=== PATIENT | male | born 1990 | race Caucasian/White ===

== ENCOUNTER 2017-01-02 14:29 | Emergency (ER) | payer MEDICAID ==
[2017-01-02 14:41] VITALS: BP 122/66
--- NOTE | 2017-01-02 14:52 | EDM.PDOC ---
ED HPI GENERAL MEDICAL PROBLEM - General Chief Complaint: General Stated Complaint: Tooth/Jaw Pain Time Seen by Provider: 01/02/17 14:30 Source of Information: Reports: Patient, Family (Sister). Denies: Old Records ( No [facility] records available) History Limitations: Reports: No Limitations - History of Present Illness INITIAL COMMENTS - FREE TEXT/NARRATIVE: The patient was brought to the emergency room via private automobile by his sister for evaluation of exacerbation of his 6 month long history of chronic intermittent right lower dental pain with symptoms worsened since about 1 AM this morning. He did try some ibuprofen at that time with no other recent antipyretic medications or treatment. He denies any recent or previous dental injury. The patient has not been evaluated by a dentist to this point and does use tobacco products as below. He has also had a two-week history of a somewhat yellowish productive cough, however denies dyspnea, wheezing, known exposure to infection, etc. No recent history of abdominal pain, heartburn, nausea, diarrhea , melena, gross hematochezia, or any food intolerance, including fatty foods, etc.. The patient also denies any recent fever, cough, wheezing, dyspnea, etc.. Onset: Gradual Duration: Other (As above) Location: Reports: Other (As above) Quality: Reports: Ache, Throbbing Severity: Moderate Improves with: Reports: None Worsens with: Reports: None Context: Reports: Other (As above) Associated Symptoms: Reports: Cough, cough w sputum. 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 Denies: Allergic Rhinitis, Impaired Vision Cardiovascular History: Reports: None. Denies: Arrhythmia, CAD, Heart Murmur, High Cholesterol, Hypertension Respiratory History: Reports: None. Denies: Asthma, COPD Gastrointestinal History: Reports: None. Denies: Celiac Disease, Cholelithiasis , GERD, GI Bleed, Hiatal Hernia, Inflammatory Bowel Disease, Irritable Bowel Syndrome, PUD Genitourinary History: Reports: None Musculoskeletal History: Reports: Osteoarthritis. Denies: Arthritis, Back Pain , Chronic, Fracture, Gout, RA, SLE Hematologic History: Denies: Anemia, Blood Transfusion(s) - Past Surgical History HEENT Surgical History: Reports: Myringotomy w Tube(s), Oral Surgery, Other ( See Below). Denies: Adenoidectomy, Tonsillectomy Other HEENT Surgeries/Procedures: Bilateral PE tubes at age 1, [place] teeth extraction 4 at age 16 GI Surgical History: Reports: None. Denies: Colonoscopy, EGD, Hernia, Inguinal Musculoskeletal Surgical History: Reports: Shoulder Surgery, Other (See Below) Other Musculoskeletal Surgeries/Procedures:: Arthroscopic right shoulder spur excisions at age 19 Social & Family History - Tobacco Use Smoking Status *Q: Current Every Day Smoker Tobacco Use Within Last Twelve Months: Cigarettes Years of Tobacco use: 14 Packs/Tins Daily: 0.5 (Started using chewing tobacco and cigarettes at age 12 with average cigarette use of one half to one pack per day with patient not using chewing tobacco during the last couple of months) Used Tobacco, but Quit: No Smoking Cessation Information Provided To Patient: Yes - Alcohol Use Alcohol Use History: Yes Days Per Week of Alcohol Use: 1 (DWI at age 25 with no history of alcohol abuse or treatment) Number of Drinks Per Day: 4 (Usually beer) Total Drinks Per Week: 4 Alcohol Use in Last Twelve Months: Yes Alcohol Use Frequency: Socially - Recreational Drug Use Recreational Drug Use: No Drug Use in Last 12 Months: No Recreational Drug Type: Denies: Amphetamines (Speed), Cocaine, Heroin, Inhalants (Glues, Solvents, Aerosols), LSD (Acid), Marijuana/Hashish, Methamphetamine, Morphine - Living Situation & Occupation Living situation: Reports: 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 ED EXAM, GENERAL - Physical Exam Exam: See Below Exam Limited By: No Limitations General Appearance: Alert, WD/WN, No Apparent Distress Eye Exam: Bilateral Eye: EOMI, Normal Inspection (No nystagmus), PERRL Ears: Normal External Exam, Normal Canal (Moderate cerumen in the EACs bilaterally right greater than left), Hearing Grossly Normal, Normal TMs Nose: Normal Inspection, Normal Mucosa, No Blood Throat/Mouth: Normal Lips, Normal Gums, Normal Oropharynx, Normal Voice, No Airway Compromise. No: Normal Teeth (Moderate periodontal disease with no significant localized tenderness or swelling in the right lower gingiva region, no jaw swelling, no drainage or evidence of significant abscess), Dysphagia, Perioral Cyanosis Head: Atraumatic, Normocephalic. No: Facial Swelling, Facial Tenderness, Sinus Tenderness Neck: Normal Inspection, Supple, Non-Tender, Full Range of Motion. No: Lymphadenopathy (L), Lymphadenopathy (R), Thyromegaly Respiratory/Chest: No Respiratory Distress, No Accessory Muscle Use, Chest Non- Tender, Rales (Very occasional bilateral), Rhonchi (Moderate diffuse bilateral) , Wheezing (Diffuse bilateral). No: Pleural Rub, Retractions Cardiovascular: Normal Peripheral Pulses, Regular Rate, Rhythm, No Edema, No Gallop, No JVD, No Murmur, No Rub. No: Gallop/S3, Friction Rub Peripheral Pulses: 2+: Radial (L), Radial (R) GI/Abdominal: Normal Bowel Sounds, Soft, Non-Tender, No Organomegaly, No Distention, No Abnormal Bruit, No Mass. No: Guarding (Male) Exam: Deferred Rectal (Males) Exam: Deferred Back Exam: Normal Inspection, Full Range of Motion. No: CVA Tenderness (L), CVA Tenderness (R), Muscle Spasm Extremities: Normal Inspection, Normal Range of Motion, Non-Tender, No Pedal Edema, Normal Capillary Refill. No: Azalea's Sign Neurological: Alert, Oriented, CN II-XII Intact, Normal Cognition, Normal Gait, No Motor/Sensory Deficits Psychiatric: Normal Affect, Normal Mood Skin Exam: Warm, Dry, Intact, Normal Color, No Rash. No: Diaphoretic, Lymphangitis, Wound/Incision Lymphatic: No Adenopathy Course - Vital Signs Last Recorded V/S: Last Vital Signs Temp 37.3 C 01/02/17 14:30 Pulse 76 01/02/17 14:30 Resp 16 01/02/17 14:30 BP 122/66 01/02/17 14:30 Pulse Ox 98 01/02/17 14:30 Vital Signs - 24 hr 01/02/17 14:30 Temperature [ 37.3 C Temporal] Pulse, 76 Peripheral [ Pulse Oximetry] Respiratory 16 Rate Blood Pressure 122/66 [Left Upper Arm ] O2 Sat by Pulse 98 Oximetry - Orders/Labs/Meds Labs: None Meds: None - Radiology Interpretation Free Text/Narrative:: None Departure - Departure Time of Disposition: 15:15 Disposition: Home, Self-Care 01 Condition: Good Clinical Impression: Dental abscess, Bronchitis, Tobacco abuse counseling Reactive airway disease Qualifiers: Asthma severity: moderate persistent Asthma complication type: with acute exacerbation Qualified Code(s): J45.41 - Moderate persistent asthma with (acute ) exacerbation - Discharge Information Prescriptions: Amoxicillin/Potassium Clav [Augmentin 875-125 Tablet] 1 each PO BIDMEALS #20 tablet guaiFENesin/Dextromethorphan [Mucinex Dm ER 1,200-60 mg Tab] 1 each PO BID #20 tab.er.12h Instructions: Dextromethorphan; Guaifenesin tablets, Amoxicillin; Clavulanic Acid tablets, Dental Abscess, [id number], Chronic Obstructive Pulmonary Disease, [id number], Acute Bronchitis, [id number] Referrals: PCP,None [Primary Care Provider] - Forms: ED Department Discharge, ED Return to Work/School Form Additional Instructions: 1. Followup with your regular provider in 10-14 days as directed. 2. Follow-up with a dentist MELISSA as discussed for dental x-rays and possible dental procedure 3. Tylenol 650 mg by mouth every 4 hours and/or OTC ibuprofen 2-3 tabs by mouth every 6 hours with food as directed./needed. 4. Listerine gargles four times per day, after meals and at bedtime, with additional Chloroseptic lozenges or spray as needed for 10 days and/or until symptoms resolve. 5. Recommend lung function test, i.e., PFTs, once your current infection has resolved 6. Stop all tobacco use MELISSA as directed/per provided information and consider contacting [employer] [facility], etc.. 7. Work excuse- See Form - Problem List & Annotations (1) Dental abscess SNOMED Code(s): 120108440 Code(s): K04.7 - PERIAPICAL ABSCESS WITHOUT SINUS Status: Acute Priority : High Current Visit: Yes Onset Date: ~01/02/17 Annotation/Comment:: Long history of right lower dental pain with possible beginning dental abscess and current moderate to severe periodontal disease. Patient was advised to follow- up with a dentist [facility] for dental x-rays and possible further therapy. Various therapeutic options were discussed, including IM Toradol and IM Rocephin therapy , which the patient did not wish to have at this time. Symptomatic relief as per discharge instructions, including additional Listerine gargles. Initiate Augmentin therapy, which will also be beneficial for his bronchitis as below (2) Bronchitis SNOMED Code(s): 95230812 Code(s): J40 - BRONCHITIS, NOT SPECIFIED ACUTE OR CHRONIC Status: Acute Priority: High Current Visit: Yes Onset Date: ~01/02/17 Annotation/ Comment:: Significant bronchitis with borderline beginning pneumonia by clinical exam. Patient did not wish to have any further extensive workup, including blood work, chest x-rays, etc. He is afebrile at this time. Initiate Augmentin and Mucinex DM therapy as above. The patient did not wish to have IM Rocephin as above. Close follow-up by his regular provider as per discharge instructions (3) Reactive airway disease SNOMED Code(s): 824697940104 Code(s): J45.909 - UNSPECIFIED ASTHMA, UNCOMPLICATED Status: Acute Priority: High Current Visit: Yes Onset Date: 01/02/17 Annotation/Comment: : Reactive airway disease secondary to his current bronchitis versus possible beginning COPD secondary to his tobacco use. Patient denies any previous history of asthma or COPD. He did not wish to have an IM Depo-Medrol injection or inhaler therapy. Close follow-up by his regular provider, including recommended PFTs after current infection has resolved Qualifiers: Asthma severity: moderate persistent Asthma complication type: with acute exacerbation Qualified Code(s): J45.41 - Moderate persistent asthma with ( acute) exacerbation (4) Tobacco abuse counseling SNOMED Code(s): 961116647, 444352138, 558852922 Code(s): Z71.6 - TOBACCO ABUSE COUNSELING Status: Chronic Priority: Medium Current Visit: Yes Annotation/Comment:: Patient was strongly advised to discontinue all tobacco use MELISSA especially in light of his dental disease and pulmonary disease as above. He was counseled on the use of Nicorette gum. Tobacco cessation information provided at discharge - Problem List Review Problem List Initiated/Reviewed/Updated: Yes - Assessment/Plan Assessment:: As above Plan: As above. Extensive precautions were given to the patient and his sister, who are in agreement with the treatment plan. See Patient Instructions for further treatment and plan.
== END 2017-01-02 15:15 | disposition home or self-care (01) ==
LOC: LL.ED 14:29
DX: K04.7 Periapical abscess without sinus (principal); J40 Bronchitis, not specified as acute or chronic; J45.41 Moderate persistent asthma with (acute) exacerbation; F17.210 Nicotine dependence, cigarettes, uncomplicated; M19.90 Unspecified osteoarthritis, unspecified site; Z71.6 Tobacco abuse counseling; Z98.890 Other specified postprocedural states
CPT/HCPCS: 99283

== ENCOUNTER 2017-09-12 18:26 | Emergency (ER) | payer BC ==
[2017-09-12 18:30] VITALS: BP 125/63
[2017-09-12] MEDS ORDERED: Lactated Ringers 1,000 ML IV ONE (18:46)
[2017-09-12] MEDS ORDERED: Famotidine 20 MG/2 ML SDV IVPUSH ONE (18:46)
[2017-09-12] MEDS ORDERED: Ondansetron 4 MG/2 ML SDV IVPUSH ONE (18:46)
--- NOTE | 2017-09-12 18:46 | EDM.PDOC ---
ED HPI GENERAL MEDICAL PROBLEM - General Chief Complaint: General Stated Complaint: n/v lost hearing to right ear Time Seen by Provider: 09/12/17 18:40 Source of Information: Reports: Patient, Old Records ([facility] chart/EMR) History Limitations: Reports: No Limitations - History of Present Illness INITIAL COMMENTS - FREE TEXT/NARRATIVE: Patient drove himself to the emergency room via private automobile for evaluation of refractory nausea and emesis associated with some heartburn with symptoms starting at about 14:00 hours yesterday. He did miss work yesterday. He denies any known exposure to infection, food poisoning, etc. He had 6 episodes of emesis yesterday with 2 episodes of emesis today and persistent nausea. He also had one loose bowel movement earlier today with no other significant diarrhea. He has not taken any medications for his symptoms to this point. Note that he did not get an influenza booster this season. He denies any gross hematuria, colic, or other UTI symptoms. The patient also denies any recent fever, wheezing, dyspnea, etc. with stable chronic cough secondary to his tobacco abuse. He also complains of 6/10 sharp right-sided otalgia with patient hearing a pop with onset of his symptoms at 16:00 hours this afternoon. No recent history of other abdominal pain, melena, gross hematochezia, or any food intolerance, including fatty foods, etc. with patient having a known history of occasional heartburn with no current treatment as below. Onset: Today, Gradual Onset Date: 09/11/17 Onset Time: 14:00 Duration: Constant, Getting Worse Location: Reports: Abdomen, Other (Right-sided otalgia). Denies: Head, Face, Neck, Chest, Back, Pelvis, Upper Extremity, Left, Upper Extremity, Right, Radiates to Quality: Reports: Same as Previous Episode, Sharp Severity: Moderate Improves with: Reports: None Worsens with: Reports: None Context: Reports: Other (As above) Associated Symptoms: Reports: Cough (Stable chronic), Other (Otalgia as above). Denies: Confusion, Chest Pain, cough w sputum, Diaphoresis, Fever/Chills, Headaches, Loss of Appetite, Malaise, Nausea/Vomiting, Rash, Seizure, Shortness of Breath, Syncope, Weakness Treatments MANAGER IN HOME: Reports: Other (see below) (None) Right Ear Pain Score (Numeric/FACES): 6 - Related Data Allergies Allergy/AdvReac Type Severity Reaction Status Date / Time No Known Allergies Allergy Verified 01/02/17 14:34 Home Meds: Home Meds Amoxicillin/Potassium Clav [Augmentin 875-125 Tablet] 1 each PO BIDMEALS #20 tablet 09/12/17 [Rx] Omeprazole Magnesium [Prilosec Otc] 20 mg PO BIDAC #30 tablet. 09/12/17 [Rx] Past Medical History HEENT History: Reports: Otitis Media. Denies: Allergic Rhinitis, Glaucoma, Hard of Hearing, Impaired Vision, Macular Degeneration, Retinal Detachment Cardiovascular History: Reports: None, Other (See Below). Denies: Aneurysm, Arrhythmia, Blood Clots/VTE/DVT, CAD, Heart Murmur, High Cholesterol, Hypertension, Syncope Other Cardiovascular History: Patient does not know his cholesterol status Respiratory History: Reports: Other (See Below). Denies: Asthma, COPD, Intubation, Previous, PE, Pneumothorax Other Respiratory History: Reactive airway disease with bronchitis with no current medical therapy Gastrointestinal History: Reports: GERD. Denies: Bowel Obstruction, Celiac Disease, Cholelithiasis, Chronic Constipation, Chronic Diarrhea, Gastritis, GI Bleed, Hepatitis, Hiatal Hernia, Inflammatory Bowel Disease, Irritable Bowel Syndrome, Jaundice, Pancreatitis, PUD Genitourinary History: Reports: None. Denies: Acute Renal Failure, Chronic Renal Insuffiency, Renal Calculus, STD, Urinary Incontinence, UTI, Recurrent Musculoskeletal History: Reports: Back Pain, Chronic, Osteoarthritis. Denies: Arthritis, Fracture, Gout, Neck Pain, Chronic, RA, SLE Neurological History: Reports: Concussion, Head Trauma, Neuropathy, Peripheral, Other (See Below). Denies: Cerebral Aneurysms, CVA, Headaches, Chronic, Migraines, MS, Parkinson's, Seizure, TIA, Vertigo Other Neuro History: Possible beginning carpal tunnel syndrome. Borderline head concussion at 8 years of age. Psychiatric History: Reports: Anxiety, Depression. Denies: Abuse, Victim of, ADD, ADHD, Addiction, Psych Hospitalization(s), PTSD, Suicide Attempt, Suicidal Ideation Endocrine/Metabolic History: Denies: Diabetes, Type I, Diabetes, Type II, Diabetes Mellitus, Type 3c, Hypothyroidism, IDDM Hematologic History: Reports: None. Denies: Anemia, Blood Transfusion(s), Iron Deficiency Immunologic History: Reports: None. Denies: AIDS, HIV, SLE Oncologic (Cancer) History: Reports: None. Denies: Basal Cell Carcinoma, Hodgkin's Lymphoma, Leukemia, Lymphoma, Malignant Melanoma, Non-Hodgkin's Lymphoma, Squamous Cell Carcinoma Dermatologic History: Denies: None, Eczema, Psoriasis - Infectious Disease History Infectious Disease History: Reports: Chicken Pox, Mononucleosis (6 years of age) . Denies: C-Difficile, Measles, Meningitis, MRSA, Mumps, Pertussis (Whooping Cough), Rheumatic Fever, Rubella, Scarlet Fever, Shingles, TB, VRE - Past Surgical History Head Surgeries/Procedures: Reports: None HEENT Surgical History: Reports: Myringotomy w Tube(s), Oral Surgery, Other ( See Below). Denies: Adenoidectomy, Cataract Surgery, Detached Retina, Eye Surgery, Laser Surgery, LASIK, Naso-Sinus Surgery, Tonsillectomy Other HEENT Surgeries/Procedures: Bilateral PE tubes at age 1, [place] teeth extraction 4 at age 16. Right lower premolar tooth extraction in December 2016. Cardiovascular Surgical History: Reports: None. Denies: Varicose Respiratory Surgical History: Reports: None. Denies: Thoracentesis GI Surgical History: Reports: None. Denies: Appendectomy, Cholecystectomy, Colonoscopy, EGD, Hernia, Abdominal, Hernia, Inguinal, Hernia Repair/Other Male Surgical History: Reports: Circumcision, Other (See Below). Denies: Vasectomy Other Male Surgeries/Procedures: Circumcision as an Endocrine Surgical History: Reports: None. Denies: Thyroid Biopsy Neurological Surgical History: Denies: C-Spine, Discectomy, Intracranial, Laminectomy, Lumbar Spine, Sacral Spine, Spinal Fusion, Thoracic Spine, Vertebroplasty Musculoskeletal Surgical History: Reports: Arthroscopic Procedure, Shoulder Surgery, Other (See Below). Denies: Carpal Tunnel, Ganglion Cyst, Joint Replacement, ORIF Other Musculoskeletal Surgeries/Procedures:: Arthroscopic right shoulder spur excisions at age 19 Oncologic Surgical History: Reports: None Dermatological Surgical History: Reports: None - Past Imaging History Past Imaging History: Reports: CAT Scan (CT of the head at 8 years of age) Social & Family History - Tobacco Use Smoking Status *Q: Current Every Day Smoker Tobacco Use Within Last Twelve Months: Cigarettes Years of Tobacco use: 13 Packs/Tins Daily: 0.5 Packs/Tins Daily Comment: Started smoking cigarettes at age 14 with maximum use of 1 pack per day. Started using chewing tobacco at age 18 with approximate use of one tin per week. Used Tobacco, but Quit: No Smoking Cessation Information Provided To Patient: Yes Second Hand Smoke Exposure: Yes Source of Second Hand Smoke Exposure: Father smokes Second Hand Smoke Education Provided: Yes - Caffeine Use Caffeine Use: Reports: Energy Drinks (3 cans per day). Denies: Coffee, Soda, Tea - Alcohol Use Alcohol Use History: Yes Days Per Week of Alcohol Use: 0 Number of Drinks Per Day: 6 Number of Drinks Per Day Comment: Usually beer once per month. DWI in 2016 with no previous of alcohol abuse or treatment Total Drinks Per Week: 0 Alcohol Use in Last Twelve Months: Yes Alcohol Use Frequency: Socially - Recreational Drug Use Recreational Drug Use: No Drug Use in Last 12 Months: No Recreational Drug Type: Denies: Cocaine, Heroin, Inhalants (Glues, Solvents, Aerosols), Ketamines, LSD (Acid), Marijuana/Hashish, Morphine, Oxycodone - Living Situation & Occupation Living situation: Reports: ( in 2013 and since 2014. 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 ED EXAM, GENERAL - Physical Exam Exam: See Below Exam Limited By: No Limitations General Appearance: Alert, WD/WN, No Apparent Distress Eye Exam: Bilateral Eye: EOMI, Normal Inspection, PERRL Ears: Normal External Exam, Normal Canal, Normal TMs (Although only partially visible secondary to moderately severe bilateral impacted cerumen with no drainage noted or evidence of infection), Hearing Loss (Mild bilateral secondary to impacted cerumen) Nose: Normal Inspection, Normal Mucosa, No Blood Throat/Mouth: Normal Inspection, Normal Lips, Normal Teeth, Normal Gums, Normal Oropharynx, Normal Voice, No Airway Compromise. No: Dysphagia, Perioral Cyanosis Head: Atraumatic, Normocephalic. No: Facial Swelling, Facial Tenderness, Sinus Tenderness Neck: Normal Inspection, Supple, Non-Tender, Full Range of Motion. No: Lymphadenopathy (L), Lymphadenopathy (R), Thyromegaly Respiratory/Chest: No Respiratory Distress, Lungs Clear, Normal Breath Sounds, No Accessory Muscle Use, Chest Non-Tender. No: Pleural Rub, Retractions Cardiovascular: Normal Peripheral Pulses, Regular Rate, Rhythm, No Edema, No Gallop, No JVD, No Murmur, No Rub. No: Gallop/S3, Gallop/S4, Friction Rub Peripheral Pulses: 2+: Radial (L), Radial (R) GI/Abdominal: Normal Bowel Sounds, Soft, Non-Tender, No Organomegaly, No Distention, No Abnormal Bruit, No Mass. No: Guarding (Male) Exam: Deferred Rectal (Males) Exam: Deferred Back Exam: Normal Inspection, Full Range of Motion. No: CVA Tenderness (L), CVA Tenderness (R), Muscle Spasm Extremities: Normal Inspection, Normal Range of Motion, Non-Tender, Normal Capillary Refill, No Pedal Edema Neurological: Alert, Oriented, CN II-XII Intact, Normal Cognition, Normal Gait, No Motor/Sensory Deficits Psychiatric: Normal Affect, Normal Mood Skin Exam: Warm, Dry, Intact, Normal Color, No Rash. No: Diaphoretic, Wound/ Incision Lymphatic: No Adenopathy Course - Vital Signs Last Recorded V/S: Last Vital Signs Temp 37.3 C 09/12/17 18:29 Pulse 95 09/12/17 18:29 Resp 14 09/12/17 18:29 BP 125/63 09/12/17 18:29 Pulse Ox 100 09/12/17 18:30 Vital Signs - 24 hr 09/12/17 09/12/17 18:29 18:30 Temperature [ 37.3 C Tympanic] Pulse, 95 Peripheral [ Left Pulse Oximetry] Respiratory 14 Rate Blood Pressure 125/63 [Left Upper Arm ] O2 Sat by Pulse 100 100 Oximetry - Orders/Labs/Meds Orders: Active Orders 24 hr Category Date Time Status Peripheral IV Care [RC] . DIRECTED Care 09/12/17 18:48 Active Nothing Per Oral Diet [DIET] Diet 09/12/17 Breakfast Active Abdomen Pelvis w Cont [CT] Stat Exams 09/12/17 18:47 Stop Req Abdomen Series w Chest 1V [CR] Stat Exams 09/12/17 18:47 Taken Sodium Chloride 0.9% [Saline Flush] Med 09/12/17 18:46 Active 10 ml FLUSH ASDIRECTED PRN Obtain Past Medical Record [OM.PC] Urgent Oth 09/12/17 18:47 Active Peripheral IV Insertion Adult [OM.PC] Stat Oth 09/12/17 18:47 Ordered Resuscitation Status Stat Resus Stat 09/12/17 18:46 Ordered Medication Orders Sodium Chloride (Saline Flush) 10 ml FLUSH ASDIRECTED PRN PRN Reason: Keep Vein Open Last Admin: 09/12/17 19:29 Dose: 10 ml Admin: 09/12/17 19:11 Dose: 10 ml Labs: Laboratory Tests 09/12/17 09/12/17 09/12/17 Range/Units 19:00 19:00 19:00 WBC 7.5 (4.0-10.2) K/uL RBC 5.04 (4.33-5.41) M/uL Hgb 15.4 (13.1-16.8) g/dL Hct 45.2 (39.0-49.0) % MCV 89.7 (84.0-98.0) fL MCH 30.6 (28.2-33.3) pg MCHC 34.1 (31.7-36.0) g/dL RDW 12.3 (11.2-14.1) % Plt Count 321 (150-350) K/uL Neut % (Auto) 55.6 (45.0-80.0) % Lymph % (Auto) 31.1 (10.0-50.0) % [place] % (Auto) 8.7 (2.0-14.0) % Eos % (Auto) 4.2 (0.0-5.0) % Baso % (Auto) 0.4 (0.0-2.0) % Neut # (Auto) 4.14 (1.40-7.00) K/uL Lymph # (Auto) 2.32 (0.50-3.50) K/uL [place] # (Auto) 0.65 (0.00-1.00) K/uL Eos # (Auto) 0.31 (0.00-0.50) K/uL Baso # (Auto) 0.03 (0.00-0.20) K/uL PT 10.4 (9.8-11.7) SEC INR 1.0 APTT 25.4 (22.1-29.8) SEC Sodium (136-145) mmol/L Potassium (3.5-5.1) mmol/L Chloride (98-107) mmol/L Carbon Dioxide (21.0-32.0) mmol/L BUN (7-18) mg/dL Creatinine (0.51-1.17) mg/dL Est Cr Clr Drug Dosing mL/min Estimated GFR (MDRD) mL/min Glucose (74-106) mg/dL Lactic Acid (0.4-2.0) mmol/L Uric Acid (2.6-7.2) mg/dL Calcium (8.5-10.1) mg/dL Magnesium (1.8-2.4) mg/dL Total Bilirubin (0.2-1.0) mg/dL AST (15-37) U/L ALT (12-78) U/L Alkaline Phosphatase (46-116) IU/L Total Protein (6.4-8.2) g/dL Albumin (3.4-5.0) g/dL Amylase 25 (25-115) U/L Lipase (73-393) U/L 09/12/17 09/12/17 Range/Units 19:00 19:00 WBC (4.0-10.2) K/uL RBC (4.33-5.41) M/uL Hgb (13.1-16.8) g/dL Hct (39.0-49.0) % MCV (84.0-98.0) fL MCH (28.2-33.3) pg MCHC (31.7-36.0) g/dL RDW (11.2-14.1) % Plt Count (150-350) K/uL Neut % (Auto) (45.0-80.0) % Lymph % (Auto) (10.0-50.0) % [place] % (Auto) (2.0-14.0) % Eos % (Auto) (0.0-5.0) % Baso % (Auto) (0.0-2.0) % Neut # (Auto) (1.40-7.00) K/uL Lymph # (Auto) (0.50-3.50) K/uL [place] # (Auto) (0.00-1.00) K/uL Eos # (Auto) (0.00-0.50) K/uL Baso # (Auto) (0.00-0.20) K/uL PT (9.8-11.7) SEC INR APTT (22.1-29.8) SEC Sodium 141 (136-145) mmol/L Potassium 4.0 (3.5-5.1) mmol/L Chloride 104 (98-107) mmol/L Carbon Dioxide 29.5 (21.0-32.0) mmol/L BUN 15 (7-18) mg/dL Creatinine 0.89 (0.51-1.17) mg/dL Est Cr Clr Drug Dosing 122.47 mL/min Estimated GFR (MDRD) > 60 mL/min Glucose 127 H (74-106) mg/dL Lactic Acid 2.2 H (0.4-2.0) mmol/L Uric Acid 5.1 (2.6-7.2) mg/dL Calcium 9.4 (8.5-10.1) mg/dL Magnesium 2.3 (1.8-2.4) mg/dL Total Bilirubin 0.3 (0.2-1.0) mg/dL AST 10 L (15-37) U/L ALT 17 (12-78) U/L Alkaline Phosphatase 70 (46-116) IU/L Total Protein 8.0 (6.4-8.2) g/dL Albumin 4.0 (3.4-5.0) g/dL Amylase (25-115) U/L Lipase 109 (73-393) U/L Microbiology 09/12/17 19:00 Influenza Type A Antigen Screen - Final Nasal, Left NEGATIVE INFLUENZA A VIRUS AG Influenza Type B Antigen Screen - Final NEGATIVE INFLUENZA B VIRUS AG Meds: Medications Generic Name Dose Route Start Last Admin Trade Name Freq PRN Reason Stop Dose Admin Sodium Chloride 10 ml 09/12/17 18:46 09/12/17 19:29 Saline Flush FLUSH 10 ml ASDIRECTED PRN Administration Keep Vein Open Discontinued Medications Generic Name Dose Route Start Last Admin Trade Name Freq PRN Reason Stop Dose Admin Amoxicillin/Clavulanate Potassium 1 tab 09/12/17 19:34 09/12/17 19:39 Augmentin 875 Mg/125 Mg PO 09/12/17 19:35 1 tab ONETIME ONE Administration Famotidine 40 mg 09/12/17 18:46 09/12/17 19:11 Pepcid IVPUSH 09/12/17 18:47 40 mg ONETIME ONE Administration Lactated Ringer's 1,000 mls @ 999 mls/hr 09/12/17 18:46 09/12/17 19:19 Ringers, Lactated IV 09/12/17 19:46 999 mls/hr .BOLUS ONE Administration Ondansetron HCl 4 mg 09/12/17 18:46 09/12/17 19:11 Zofran IVPUSH 09/12/17 18:47 4 mg ONETIME ONE Administration - Radiology Interpretation Free Text/Narrative:: Acute abdominal x-ray shows evidence of mild to moderate pulmonary obstructive disease with no cardiomegaly, pneumothorax, pulmonary infiltrates, or CHF. Additional moderate diffuse stool noted with nonspecific bowel gaseous pattern with no fluid levels, ileus, obstruction, free air, intra-abdominal calcifications, etc. Departure - Departure Time of Disposition: 20:35 Disposition: Home, Self-Care 01 Condition: Good Clinical Impression: Impacted cerumen of both ears, Viral gastroenteritis, Tobacco abuse counseling , Mixed anxiety depressive disorder, Lactic acid increased, Peptic reflux disease Otalgia Qualifiers: Laterality: right Qualified Code(s): H92.01 - Otalgia, right ear Reactive airway disease Qualifiers: Asthma severity: moderate persistent Asthma complication type: with acute exacerbation Qualified Code(s): J45.41 - Moderate persistent asthma with (acute ) exacerbation - Discharge Information Prescriptions: Amoxicillin/Potassium Clav [Augmentin 875-125 Tablet] 1 each PO BIDMEALS #20 tablet Omeprazole Magnesium [Prilosec Otc] 20 mg PO BIDAC #30 tablet.dr Instructions: Steps to Quit Smoking, [id number], Amoxicillin; Clavulanic Acid tablets, Earwax Buildup, Adult, Ondansetron injection, Viral Gastroenteritis, Adult, [id number], Heartburn, [id number], Famotidine injection, Earache, Adult Forms: ED Department Discharge Additional Instructions: 1. Followup with your regular provider in 10-14 days as directed. Bilateral ear irrigation recommended at that time. 2. Tylenol 650 mg by mouth every 4 hours and/or OTC ibuprofen 2-3 tabs by mouth every 6 hours with food as directed./needed. 3. Work excuse- See Form 4. Consider lung function tests, PFTs, secondary to your history of reactive airway disease and tobacco use 5. Discuss current stressors and emotional status with regular provider at follow-up with consideration of medical therapy, counseling, etc. as discussed 6. Discontinue all energy drink use MELISSA as discussed 7. Stop all tobacco use MELISSA as directed/per provided information and consider contacting Quit LIne, etc.. 8. Immediately after this visit verify that your cellular telephone's voicemail has been activated and is empty. Also verify that your home telephone 's answering machine is operating properly and has space to receive messages. Note that it is sometimes necessary for us to be able to contact you at a later date to discuss your medical care. 9. Discuss possible treatment and/or evaluation of your chronic heartburn and update her abdominal status with your regular provider after recent Prilosec therapy 10. [place] diet including encouragement of oral fluids such as sports drinks, etc. for 24-48 hours as directed. Advance to regular diet as tolerated thereafter. 11. Obtain influenza boosters on a yearly basis as directed. - Problem List & Annotations (1) Viral gastroenteritis SNOMED Code(s): 687577943 Code(s): A08.4 - VIRAL INTESTINAL INFECTION, UNSPECIFIED Status: Acute Priority: High Current Visit: No Onset Date: 09/11/17 Annotation/Comment: : IV fluids given in the emergency room as above. Augmentin therapy as above. Work excuse/[place] form completed. Close follow-up by regular provider. (2) Otalgia SNOMED Code(s): 88441001 Code(s): H92.09 - OTALGIA, UNSPECIFIED EAR Status: Acute Priority: High Current Visit: No Onset Date: 09/12/17 Annotation/Comment:: Augmentin therapy initiated with clinical history evidence of probable otitis media with concomitant viral GE. Close follow-up by regular provider. Note previous history of recurrent otitis media with PE tubes. Qualifiers: Laterality: right Qualified Code(s): H92.01 - Otalgia, right ear (3) Impacted cerumen of both ears SNOMED Code(s): 21790707 Code(s): H61.23 - IMPACTED CERUMEN, BILATERAL Status: Acute Priority: Medium Current Visit: No Onset Date: ~09/12/17 Annotation/Comment:: Secondary to current otalgia irrigation contraindicated. Close follow-up by regular provider as per discharge instructions. (4) Lactic acid increased SNOMED Code(s): 11993466 Code(s): E87.2 - ACIDOSIS Status: Acute Priority: High Current Visit: No Onset Date: 09/12/17 Annotation/Comment:: Mild borderline elevated lactic acid level with no clinical evidence of sepsis, significant fever, etc. IV fluids given in the emergency room as above. (5) Mixed anxiety depressive disorder SNOMED Code(s): 960627035 Code(s): F41.8 - OTHER SPECIFIED ANXIETY DISORDERS Status: Chronic Priority: Medium Current Visit: No Annotation/Comment:: Moderate control by patient history. Close follow-up with regular provider as per discharge instructions. He is currently using tobacco for his stressors with tobacco cessation strongly encouraged as below. Discontinuation of energy drinks also strongly encouraged. (6) Reactive airway disease SNOMED Code(s): 956290041483 Code(s): J45.909 - UNSPECIFIED ASTHMA, UNCOMPLICATED Status: Chronic Priority: High Current Visit: No Onset Date: 01/02/17 Annotation/Comment: : Reactive airway disease secondary to bronchitis in the past with evidence of reactive airway disease by today's chest x-ray. Close follow-up by his regular provider, including recommended PFTs, as discussed. Note current tobacco use. Qualifiers: Asthma severity: moderate persistent Asthma complication type: with acute exacerbation (7) Tobacco abuse counseling SNOMED Code(s): 764827307, 253995640, 865766335 Code(s): Z71.6 - TOBACCO ABUSE COUNSELING Status: Chronic Priority: Medium Current Visit: No Annotation/Comment:: Patient was strongly advised to discontinue all tobacco use MELISSA. He was previously counseled on the use of Nicorette gum. Tobacco cessation information was offered once again today with patient already having this information at home. (8) Peptic reflux disease SNOMED Code(s): 946112132 Code(s): K21.9 - GASTRO-ESOPHAGEAL REFLUX DISEASE WITHOUT ESOPHAGITIS Status: Chronic Priority: Medium Current Visit: No Annotation/Comment:: Probable GERD. Consider further GI workup depending on his clinical course, including possible H. pylori stool antigen evaluation, EGD, etc. Prilosec initiated on an outpatient basis with high-dose IV Pepcid and IV Protonix given in the emergency room. - Problem List Review Problem List Initiated/Reviewed/Updated: Yes - My Orders Last 24 Hours: My Active Orders 09/12/17 18:46 Sodium Chloride 0.9% [Saline Flush] 10 ml FLUSH ASDIRECTED PRN Resuscitation Status Stat 09/12/17 18:47 Abdomen Pelvis w Cont [CT] Stat Abdomen Series w Chest 1V [CR] Stat Obtain Past Medical Record [OM.PC] Urgent Peripheral IV Insertion Adult [OM.PC] Stat 09/12/17 18:48 Peripheral IV Care [RC] . DIRECTED 09/12/17 Breakfast Nothing Per Oral Diet [DIET] - Assessment/Plan Last 24 Hours: My Active Orders 09/12/17 18:46 Sodium Chloride 0.9% [Saline Flush] 10 ml FLUSH ASDIRECTED PRN Resuscitation Status Stat 09/12/17 18:47 Abdomen Pelvis w Cont [CT] Stat Abdomen Series w Chest 1V [CR] Stat Obtain Past Medical Record [OM.PC] Urgent Peripheral IV Insertion Adult [OM.PC] Stat 09/12/17 18:48 Peripheral IV Care [RC] . DIRECTED 09/12/17 Breakfast Nothing Per Oral Diet [DIET] Assessment:: As above Plan: As above. Extensive precautions were given to the patient, who is in agreement with the treatment plan. See Patient Instructions for further treatment and plan.
[2017-09-12] MEDS: Sodium Chloride 0.9% 10 ML Syringe FLUSH PRN ×2 (19:11→19:29)
[2017-09-12 19:23] LABS: CHLORIDE,CL 104 mmol/L (98-107); SODIUM,NA 141 mmol/L (136-145)
[2017-09-12] MEDS ORDERED: Amoxicillin/Clavulanate K 875-125 MG Tab PO ONE (19:34)
== END 2017-09-12 20:30 | disposition home or self-care (01) ==
LOC: LL.ED 18:26
DX: J45.41 Moderate persistent asthma with (acute) exacerbation (principal); A08.4 Viral intestinal infection, unspecified; H92.01 Otalgia, right ear; H61.23 Impacted cerumen, bilateral; K21.9 Gastro-esophageal reflux disease without esophagitis; F17.210 Nicotine dependence, cigarettes, uncomplicated; F41.8 Other specified anxiety disorders; Z71.6 Tobacco abuse counseling
CPT/HCPCS: 36415; 74022; 80053; 82150; 83605; 83690; 83735; 84550; 85025; 85610; 85730; 87804; 96361; 96374; 96375; 99284; A9270-GY; J2405; J7050; J7120; S0028

== ENCOUNTER 2024-12-16 12:51 | Emergency (ER) | payer BC, MEDICAID ==
[2024-12-16 13:36] VITALS: BP 110/74; PULSE 66
== END 2024-12-16 13:49 | disposition home or self-care (01) ==
LOC: LL.ED 12:51
DX: T33.531A Superficial frostbite of right finger(s), initial encounter (principal); S60.422A Blister (nonthermal) of right middle finger, initial encounter; Z79.899 Other long term (current) drug therapy; X31.XXXA Exposure to excessive natural cold, initial encounter
CPT/HCPCS: 99283